=== PATIENT | male | born 1975 | race Caucasian/White ===

== ENCOUNTER 2020-07-20 09:04 | Day surgery (SDC) | payer OTHER ==
[2020-07-20] MEDS ORDERED: Lidocaine 2% 100 MG/5 ML Syringe IVPUSH ONE (09:05)
[2020-07-20] MEDS ORDERED: Neostigmine Methylsulfate 10 MG/10 ML MDV IVPUSH ONE (09:05)
[2020-07-20] MEDS ORDERED: Rocuronium 100 MG/10 ML MDV IV ONE (09:05)
[2020-07-20] MEDS ORDERED: Ketorolac 30 MG/ML SDV IVPUSH ONE (09:05)
[2020-07-20] MEDS ORDERED: Ondansetron 4 MG/2 ML SDV IVPUSH ONE (09:05)
[2020-07-20] MEDS ORDERED: HYDROmorphone 2 MG/ML SDV IV ONE (09:05)
[2020-07-20] MEDS ORDERED: Glycopyrrolate 0.2 MG/ML 5 ML MDV IV ONE (09:05)
[2020-07-20] MEDS ORDERED: fentaNYL 100 MCG/2 ML SDV IV ONE (09:05)
[2020-07-20] MEDS ORDERED: Lactated Ringers 1,000 ML IV ONE (09:05)
[2020-07-20] MEDS ORDERED: Dexamethasone 4 MG/ML 5 ML MDV IVPUSH ONE (09:05)
[2020-07-20] MEDS ORDERED: Midazolam 1 MG/ML 2 ML SDV IV ONE (09:05)
[2020-07-20] MEDS ORDERED: Succinylcholine 200 MG/10 ML MDV IV ONE (09:05)
[2020-07-20] MEDS ORDERED: Propofol 200 MG/20 ML SDV IV ONE (09:05)
[2020-07-20] MEDS ORDERED: Lactated Ringers 1,000 ML IV SCH (09:15)
[2020-07-20] MEDS ORDERED: Sodium Chloride 0.9% 10 ML Syringe FLUSH PRN (09:15)
[2020-07-20] MEDS ORDERED: Bupivacaine 0.25% 30 ML SDV INJECT ONE (11:58)
--- NOTE | 2020-07-20 13:09 | PCM.HP.2 ---
H&P History of Present Illness - General Date of Service: 07/20/20 Admit Problem/Dx: Admission Diagnosis/Problem Admission Diagnosis/Problem Hernia Source of Information: Patient, Old Records History Limitations: Reports: No Limitations - History of Present Illness Initial Comments - Free Text/Narative: Here for laprascopic Umbilical Hernia Repair with mesh. No changes since seen in clinic last month. - Related Data Allergies/Adverse Reactions: Allergies Allergy/AdvReac Type Severity Reaction Status Date / Time No Known Allergies Allergy Verified 07/19/20 14:05 Home Medications: Home Meds Acetaminophen [Tylenol Extra Strength] 500 mg PO Q6H PRN 07/19/20 [History] Diclofenac Sodium [Voltaren] 50 mg PO BID 07/19/20 [History] Ketorolac [Toradol] 10 mg PO Q6H PRN 07/19/20 [History] Pantoprazole Sodium [Protonix] 40 mg PO DAILY PRN 07/20/20 [History] Past Medical History HEENT History: Reports: None Cardiovascular History: Reports: None Respiratory History: Reports: None Gastrointestinal History: Reports: None Genitourinary History: Reports: None Musculoskeletal History: Reports: Back Pain, Chronic Neurological History: Reports: None Psychiatric History: Reports: None Endocrine/Metabolic History: Reports: Obesity/BMI 30+ Hematologic History: Reports: None Immunologic History: Reports: None Oncologic (Cancer) History: Reports: None Dermatologic History: Reports: None - Past Surgical History Head Surgeries/Procedures: Reports: None HEENT Surgical History: Reports: Tonsillectomy Cardiovascular Surgical History: Reports: None Respiratory Surgical History: Reports: None GI Surgical History: Reports: None Male Surgical History: Reports: None Endocrine Surgical History: Reports: None Neurological Surgical History: Reports: None Musculoskeletal Surgical History: Reports: Other (See Below) Other Musculoskeletal Surgeries/Procedures:: HIP AND BACK SURGERY Oncologic Surgical History: Reports: None Dermatological Surgical History: Reports: None Social & Family History - Tobacco Use Tobacco Use Status *Q: Former Tobacco User Years of Tobacco use: 3 - Recreational Drug Use Recreational Drug Use: Yes Recreational Drug Type: Reports: Cocaine Recreational Drug Use Frequency: Not Used In Over 5 Months H&P Review of Systems - Review of Systems: Review Of Systems: Comprehensive ROS is negative, except as noted in HPI. Exam - Exam Exam: See Below - Vital Signs Vital Signs: Last Vital Signs Temp 98.4 F 07/20/20 09:05 Pulse 62 07/20/20 09:05 Resp 16 07/20/20 09:05 BP 168/93 H 07/20/20 09:05 Pulse Ox 98 07/20/20 09:05 Weight: 161.3 kg - Exam General: Alert, Oriented Lungs: Clear to Auscultation, Normal Respiratory Effort Cardiovascular: Regular Rate, Regular Rhythm GI/Abdominal Exam: Soft, Non-Tender, Hernia (Chronically incarcerated umbilical hernia.) Sepsis Event Note - Focused Exam Vital Signs: Vital Signs Temp Pulse Resp BP Pulse Ox 07/20/20 09:05 98.4 F 62 16 168/93 H 98 Problem List Initiated/Reviewed/Updated: Yes Orders Last 24hrs: Active Orders 24 hr Category Date Time Status Patient Status [ADT] Routine ADT 07/20/20 09:15 Active Patient to Empty Bladder [RC] ASDIRECTED Care 07/20/20 09:15 Active RT Incentive Spirometry [RC] ASDIRECTED Care 07/20/20 09:15 Active Verify Patient Consent Obtain [RC] ASDIRECTED Care 07/20/20 09:15 Active Nothing Per Oral Diet [DIET] Diet 07/20/20 Breakfast Ordered Lactated Ringers [Ringers, Lactated] 1,000 ml Med 07/20/20 09:15 Active IV ASDIRECTED Sodium Chloride 0.9% [Saline Flush] Med 07/20/20 09:15 Active 10 ml FLUSH ASDIRECTED PRN Peripheral IV Insertion Adult [OM.PC] Routine Oth 07/20/20 09:15 Ordered Sequential Compression Device [OM.PC] Routine Oth 07/20/20 09:15 Ordered Resuscitation Status Routine Resus Stat 07/19/20 14:16 Ordered Medication Orders Lactated Ringer's (Ringers, Lactated) 1,000 mls @ 125 mls/hr IV ASDIRECTED NELSON Last Admin: 07/20/20 09:30 Dose: 125 mls/hr Documented by: JUSTINA Sodium Chloride (Saline Flush) 10 ml FLUSH ASDIRECTED PRN PRN Reason: Keep Vein Open Assessment/Plan Comment:: Umbilical Hernia; Chronically incarcerated Will proceed with surgery; risks and complications reviewed, consent obtained.
--- NOTE | 2020-07-20 13:10 | PCM.OPNOTE ---
- General Post-Op/Procedure Note Date of Surgery/Procedure: 07/20/20 Operative Procedure(s): Lap Umbilical Hernia Repair with Mesh Findings: Large amount of omentum incarcerated Pre Op Diagnosis: Above Post-Op Diagnosis: Same Anesthesia Technique: General ET Tube Primary Surgeon: Jack Sanz Issuer: Jem Juarez EBNarayan in mLs: 20 Complications: None Condition: Good
[2020-07-20] MEDS ORDERED: Acetaminophen/HYDROcodone 325-5 MG Tab PO ONE (14:23)
--- NOTE | 2020-07-21 07:28 | OR ---
DATE OF OPERATION: 07/20/2020 SURGEON: Jack Sanz MD PREOPERATIVE DIAGNOSIS: Chronically incarcerated umbilical hernia. POSTOPERATIVE DIAGNOSIS: Chronically incarcerated umbilical hernia. PROCEDURE: Umbilical hernia repair with mesh. DIRECTOR OF DESIGN: Dr. Jem Juarez. Dr. Juarez was essential for assistance and reducing surgical time. PROCEDURE IN DETAIL: The patient was brought to the operating room, where general endotracheal anesthesia was administered. The abdomen was clipped, prepped with ChloraPrep and draped sterilely. IV antibiotics had been administered. Time-out was performed. 1% lidocaine was infiltrated in the left upper quadrant and a 1.5 cm incision made in the left subcostal region and the Visiport introduced into the peritoneal cavity without difficulty. Pneumoperitoneum was obtained. 5 mm ports were placed in the left lower, right upper, and right lower quadrants. There was a large amount of chronically incarcerated omentum that was tightly packed through a smaller umbilical defect. This was reduced with blunt dissection and sharply incised incising some adhesions. Some of the adhesions were vascular and were clipped with a hemoclip. Once all the omentum was reduced, the hernia defect was 1 inch in diameter. A 4 inch x 6 inch piece of Ventralight mesh was chosen. The sutures were placed in each quadrant and the mesh were rolled and delivered into the peritoneal cavity. Small stab incisions were made in each quadrant and suture grasped with port closure device and pulled up to the anterior abdominal wall. Prior to introducing the mesh, some preperitoneal fatty tissue was taken down with blunt and sharp dissection in the lower half to provide good surface for the mesh to adhere to. Each quadrant of the mesh was then secured with a Permasorb tack and first outer row completed circumferentially providing good coverage. The second inner row was then performed. The mesh looks in good place. Hemostasis was assured. The left upper quadrant fascial defect was closed with the port closure device using #0 Vicryl. Pneumoperitoneum was released and incisions closed with #4-0 Vicryl subcuticular suture. Benzoin and Steri-Strips were placed and Band-Aids applied. The patient tolerated the procedure well. Estimated blood loss was 20 mL. He returned to postanesthesia in stable condition. /[id number] CANDICE/TIM
== END 2020-07-20 15:30 | disposition home or self-care (01) ==
LOC: FB.SDS 09:04
PROVIDERS: ATTEND Surgery
DX: K42.0 Umbilical hernia with obstruction, without gangrene (principal); G89.29 Other chronic pain; E66.9 Obesity, unspecified; R19.4 Change in bowel habit; K21.9 Gastro-esophageal reflux disease without esophagitis; Z79.899 Other long term (current) drug therapy; Z98.890 Other specified postprocedural states; Z87.891 Personal history of nicotine dependence; Z80.0 Family history of malignant neoplasm of digestive organs; Z68.41 Body mass index [BMI] 40.0-44.9, adult
CPT/HCPCS: 00752-QZ; 94150; A9270-GY; C1713; C1781; J0330; J0690; J1100; J1170; J1885; J2001; J2250; J2405; J2704; J2710; J3010; J3490; J7120